=== PATIENT | male | born 1985 | race African-American/Black ===

== ENCOUNTER 2020-04-03 16:59 | Emergency (ER) | payer MEDICAID, OTHER ==
[~2020-04-03] VITALS: Ht 177.8 cm; Wt 82.0 kg
[2020-04-03] MEDS ORDERED: KETOROLAC 60MG/2ML VIAL IM ONE (17:30)
[2020-04-03] MEDS ORDERED: BACITRACIN ZINC OINT UDPKT TOP ONE (17:30)
[2020-04-03] MEDS ORDERED: LIDOCAINE 1%/EPI 1:100,000 10 ML VIAL IJ ONE (17:45)
[2020-04-03] MEDS ORDERED: LIDOCAINE HCL/EPINEPHRINE 1%-EPI 1:100,000 20 ML VIAL INFIL NR (18:00)
[2020-04-03 18:30] VITALS: BP 117/79
== END 2020-04-03 18:40 | disposition home or self-care (01) ==
LOC: ER 16:59
DX: S51.812A Laceration without foreign body of left forearm, initial encounter (principal); R01.1 Cardiac murmur, unspecified; W26.0XXA Contact with knife, initial encounter; Y93.89 Activity, other specified; Y92.018 Other place in single-family (private) house as the place of occurrence of the external cause
CPT/HCPCS: 73090; 96372; 99283; J1885; J3490

== ENCOUNTER 2020-09-16 11:05 | Emergency (ER) | payer MEDICAID ==
[~2020-09-16] VITALS: Ht 180.3 cm; Wt 73.0 kg
[2020-09-16] MEDS ORDERED: CLINDAMYCIN 600 MG in DEXTROSE 5% WATER 50 ML IV ONE ×2 (11:30→18:00)
[2020-09-16] MEDS ORDERED: CLINDAMYCIN 600MG PREMIX 50 ML IV SCH (12:15)
[2020-09-16 13:07] LABS: BASOPHILS % 0.7 % (0.0-2.0); EOSINOPHILS % 1.2 % (0.0-5.0); HEMATOCRIT. 49.7 % (42.0-52.0); HEMOGLOBIN. 16.8 g/dL (14.0-18.0); LYMPHOCYTES % 26.3 % (20.0-50.0); MEAN CORPUSCULAR VOLUME 88.8 fL (80.0-94.0); MEAN PLATELET VOLUME 8.7 fl (7.4-10.4); MONOCYTES % 5.4 % (2.0-8.0); NEUTROPHILS % 66.4 % (40.0-76.0); PLATELET 229 x1000/uL (130-400); RED BLOOD CELL COUNT 5.59 mill/uL (4.7-6.1); RED CELL DISTRIBUTION WIDTH 13.5 % (11.6-14.6)
[2020-09-16 13:10] LABS: CHLORIDE 102 mEq/L (98-107)
[2020-09-16] MEDS ORDERED: BUPIVACAINE HCL/PF 0.25% (2.5MG/ML) 10ML ONE (14:15)
[2020-09-16] MEDS ORDERED: SODIUM CHLORIDE 0.9% INJ 10ML FLUSH IVF ONE (14:15)
[2020-09-16] MEDS ORDERED: BACITRACIN 50,000 UNITS/VIAL ONE (14:16)
[2020-09-16] MEDS ORDERED: VANCOMYCIN HCL 1 GM/VIAL ONE (14:16)
[2020-09-16] MEDS ORDERED: PROPOFOL 10MG/ML 100ML 100 ML IV ONE (14:50)
[2020-09-16] MEDS ORDERED: FENTANYL CITRATE/PF 50MCG/ML 2ML VIAL ONE (14:50)
[2020-09-16] MEDS ORDERED: MIDAZOLAM HCL 2 MG/2 ML VIAL ONE (14:50)
[2020-09-16] MEDS ORDERED: LIDOCAINE HCL/PF 2% 20MG/ML 5 ML/VIAL ONE (14:56)
[2020-09-16] MEDS ORDERED: HYDROCODONE/ACETAMINOPHEN 5/325MG TABLET PO PRN ×2 (15:00)
[2020-09-16] MEDS ORDERED: CEFAZOLIN 1000MG PREMIX 50 ML IV SCH (15:00)
[2020-09-16] MEDS ORDERED: ONDANSETRON HCL 4MG/2ML INJ IV PRN (15:00)
[2020-09-16] MEDS ORDERED: HYDROMORPHONE HCL/PF 2MG/ML CPJ IV PRN ×2 (15:00→16:00)
[2020-09-16] MEDS ORDERED: DIPHENHYDRAMINE 50MG/ML VIAL IV PRN (16:00)
[2020-09-16] MEDS ORDERED: MEPERIDINE HCL/PF 25MG/ML CPJ IV PRN (16:00)
[2020-09-16] MEDS ORDERED: ENOXAPARIN 40MG/0.4ML SYR SUBCUT SCH (16:00)
[2020-09-16] MEDS ORDERED: METOCLOPRAMIDE HCL 10MG/2ML VIAL IV NR (16:00)
[2020-09-16] MEDS ORDERED: CLIN300C11 MT (17:51)
[2020-09-16 18:10] VITALS: BP 134/86
[2020-09-17] MEDS ORDERED: CLINDAMYCIN 600MG PREMIX 50 ML IV SCH
== END 2020-09-16 14:20 | disposition left against medical advice (07) ==
LOC: ER 11:05 → EDBEDREQ 14:23 → EDBEDREQTM 14:25 → ENRESERV 16:57 → CANBEDREQ 09-17 04:22
DX: M65.842 Other synovitis and tenosynovitis, left hand (principal); E87.1 Hypo-osmolality and hyponatremia
CPT/HCPCS: 36415; 73120; 80053; 85025; 87070; 87075; 87077; 87205; 87426; 96365; 96375; 99285; A4217; J1170; J2250; J2704; J3010; J3370; J3490; Z7610; J7060